=== PATIENT | male | born 1950 | race Caucasian/White ===

== ENCOUNTER 2020-10-26 20:26 | Inpatient (IN) ==
[2020-10-26] MEDS ORDERED: Piperacillin/Tazobactam 3.375 GM in 0.9 % Sodium Chloride Mini Bag 100 ML IVPB ONE (22:57)
[2020-10-26 23:33] LABS: Amorphous Sediment,Urine Few per hpf (None-Few); Bilirubin,Urine Negative (Negative); Blood,Urine Negative (Negative); Clarity,Urine Clear (Clear); Color,Urine Yellow (Yellow); Glucose,Urine (UA) Normal (Normal); Ketones,Urine Negative (Negative); Leukocyte Esterase,Urine Negative (Negative); Nitrite,Urine Negative (Negative); PH,Urine 6.5 pH Units (5.0-8.0); Protein,Urine 50 mg/dL (Neg-Trace); Specific Gravity,Urine > 1.030 (1.010-1.025); Squamous Epithelial Cell,Urine Few per hpf (None-Few); WBC,Urine 0-3 per hpf (0-3)
[2020-10-26 23:34] LABS: Amphetamine Screen,Urine Positive ng/mL (Cutoff=1000); Barbiturate Screen,Urine Negative ng/mL (Cutoff=200); Benzodiazepines Screen,Urine Negative ng/mL (Cutoff=200); Cannabinoid Screen,Urine Positive ng/mL (Cutoff = 50); Cocaine Screen,Urine Negative ng/mL (Cutoff= 300); Opiate Screen,Urine Negative ng/mL (Cutoff=300); Phencyclidine Screen,Urine Negative ng/mL (Cutoff=25)
[2020-10-26 23:46] LABS: Basophils % 0.1 %; Eosinophils # 0.1 K/mcL (0.0-0.6); Eosinophils % 0.5 %; Hematocrit 34.8 % (37.5-50.1); Hemoglobin 11.5 g/dL (12.9-16.9); Immature Granulocytes % 0.5 % (0-4); Lymphocytes # 1.1 K/mcL (0.6-4.6); Mean Corpuscular Hemoglobin 31.8 pg (28.0-33.3); Mean Corpuscular Volume 96.1 fL (83.0-100.0); Mean Platelet Volume 9.4 fL (9.4-12.4); Monocytes # 0.8 K/mcL (0.0-1.3); Monocytes % 5.5 %; Neutrophils # 12.2 K/mcL (1.6-8.9); Platelet Count 249 K/mcL (140-400); Red Blood Count 3.62 M/mcL (4.19-5.50); Red Cell Distribution Width 13.1 % (11.5-14.5); Segmented Neutrophils % 85.4 %; White Blood Count 14.3 K/mcL (4.3-11.1)
[2020-10-26 23:47] LABS: Acetaminophen < 10 mcg/mL (10-20); Ethanol < 10 mg/dL (Less than 10); Salicylate < 2.5 mg/dL (15.0-30.0)
[2020-10-26 23:48] LABS: Alanine Aminotransferase 13 Units/L (7-52); Albumin 3.1 g/dL (3.5-5.7); Albumin/Globulin Ratio 0.9 (1.1-2.2); Alkaline Phosphatase 88 Units/L (34-104); Aspartate Amino Transferase 28 Units/L (13-39); BUN/Creatinine Ratio 27 (6-26); Bilirubin,Direct 0.2 mg/dL (0.0-0.2); Bilirubin,Indirect 0.3 mg/dL (0.0-1.0); Bilirubin,Total 0.5 mg/dL (0.3-1.0); Blood Urea Nitrogen 25 mg/dL (8-23); Calcium 8.5 mg/dL (8.6-10.3); Carbon Dioxide 27 mEq/L (23-29); Chloride 99 mEq/L (98-107); Globulin 3.4 g/dL (2.4-3.5); Glucose 103 mg/dL (70-105); Lipase 7 Units/L (11-82); Osmolality,Calculated 279 (280-300); Potassium 3.7 mEq/L (3.5-5.1); Sodium 132 mEq/L (136-145); Total Protein 6.5 g/dL (6.4-8.9); eGFR For African Americans > 60 (> 60); eGFR For Non-African Americans > 60 (> 60)
[2020-10-27] MEDS ORDERED: Ondansetron 4 MG/2 ML VIAL IVP PRN (01:13)
[2020-10-27] MEDS ORDERED: Naloxone 0.4 MG/ML INJ IVP PRN (01:13)
[2020-10-27] MEDS: Vancomycin 1,250 MG/262.5 ML IV.SOLN IVPB SCH ×2 (02:38→15:36)
[2020-10-27 03:04] LABS: Basophils % 0.2 %; Eosinophils # 0.1 K/mcL (0.0-0.6); Eosinophils % 0.8 %; Hematocrit 35.5 % (37.5-50.1); Hemoglobin 11.8 g/dL (12.9-16.9); Immature Granulocytes % 0.5 % (0-4); Lymphocytes # 1.2 K/mcL (0.6-4.6); Mean Corpuscular HGB Conc 33.2 g/dL (31.6-35.5); Mean Corpuscular Hemoglobin 31.4 pg (28.0-33.3); Mean Corpuscular Volume 94.4 fL (83.0-100.0); Mean Platelet Volume 9.6 fL (9.4-12.4); Monocytes # 0.8 K/mcL (0.0-1.3); Monocytes % 6.2 %; Neutrophils # 11.1 K/mcL (1.6-8.9); Platelet Count 243 K/mcL (140-400); Red Blood Count 3.76 M/mcL (4.19-5.50); Segmented Neutrophils % 83.3 %; White Blood Count 13.3 K/mcL (4.3-11.1)
[2020-10-27] MEDS ORDERED: Saliva Stimulant 44.3ml BOTTLE PO PRN (03:08)
[2020-10-27 03:13] LABS: INR 1.1
[2020-10-27 03:17] LABS: BUN/Creatinine Ratio 27 (6-26); Blood Urea Nitrogen 25 mg/dL (8-23); Calcium 8.5 mg/dL (8.6-10.3); Carbon Dioxide 24 mEq/L (23-29); Chloride 102 mEq/L (98-107); Glucose 90 mg/dL (70-105); Osmolality,Calculated 280 (280-300); Potassium 3.7 mEq/L (3.5-5.1); Sodium 133 mEq/L (136-145); eGFR For African Americans > 60 (> 60); eGFR For Non-African Americans > 60 (> 60)
[2020-10-27] MEDS ORDERED: Dextrose Gel 15 GM/37.5 ML TUBE PO PRN ×2 (03:36)
[2020-10-27] MEDS ORDERED: D5% in Water 1,000 ML IVC PRN (03:36)
[2020-10-27] MEDS ORDERED: *HR* Dextrose 50 % in Water (Vial) 50 ML VIAL IVP PRN (03:36)
[2020-10-27] MEDS: Insulin LISPRO 300 UNITS/3 ML VIAL SUBQ SCH ×3 (07:50→17:37)
[2020-10-27] MEDS: Piperacillin/Tazobactam 3.375 GM in 0.9 % Sodium Chloride Mini Bag 100 ML IVPB SCH ×2 (08:22→15:35)
[2020-10-27] MEDS ORDERED: Isovue-370 500 ML BOTTLE IVP ONE (11:46)
[2020-10-27] MEDS: 0.9 % Sodium Chloride 1,000 ML IVC SCH (12:46)
[2020-10-28] MEDS: Insulin LISPRO 300 UNITS/3 ML VIAL SUBQ SCH ×5 (00:04→20:54)
[2020-10-28] MEDS: Piperacillin/Tazobactam 3.375 GM in 0.9 % Sodium Chloride Mini Bag 100 ML IVPB SCH ×4 (00:23→23:09)
[2020-10-28 01:43] LABS: Basophils % 0.2 %; Eosinophils # 0.1 K/mcL (0.0-0.6); Eosinophils % 0.5 %; Hematocrit 35.4 % (37.5-50.1); Hemoglobin 11.5 g/dL (12.9-16.9); Immature Granulocytes % 0.7 % (0-4); Lymphocytes # 0.9 K/mcL (0.6-4.6); Lymphocytes % 6.9 %; Mean Corpuscular HGB Conc 32.5 g/dL (31.6-35.5); Mean Corpuscular Hemoglobin 31.5 pg (28.0-33.3); Mean Platelet Volume 9.4 fL (9.4-12.4); Monocytes # 0.9 K/mcL (0.0-1.3); Monocytes % 7.6 %; Neutrophils # 10.4 K/mcL (1.6-8.9); Platelet Count 275 K/mcL (140-400); Red Blood Count 3.65 M/mcL (4.19-5.50); Red Cell Distribution Width 13.3 % (11.5-14.5); Segmented Neutrophils % 84.1 %; White Blood Count 12.4 K/mcL (4.3-11.1)
[2020-10-28 02:03] LABS: BUN/Creatinine Ratio 26 (6-26); Blood Urea Nitrogen 24 mg/dL (8-23); Calcium 8.4 mg/dL (8.6-10.3); Carbon Dioxide 25 mEq/L (23-29); Chloride 104 mEq/L (98-107); Glucose 65 mg/dL (70-105); Osmolality,Calculated 288 (280-300); Potassium 3.7 mEq/L (3.5-5.1); Sodium 138 mEq/L (136-145); eGFR For African Americans > 60 (> 60); eGFR For Non-African Americans > 60 (> 60)
[2020-10-28] MEDS: Vancomycin 1,250 MG/262.5 ML IV.SOLN IVPB SCH ×2 (03:13→15:49)
[2020-10-28] MEDS: 0.9 % Sodium Chloride 1,000 ML IVC SCH ×2 (04:17→20:31)
[2020-10-28] MEDS ORDERED: Melatonin 3 MG TABLET PO PRN (12:09)
[2020-10-28] MEDS ORDERED: *HR* LORazepam 1 MG TABLET PO PRN (12:16)
[2020-10-28] MEDS: haloperidoL 5 MG TABLET PO SCH (20:31)
[2020-10-29 02:00] LABS: Basophils % 0.3 %; Eosinophils # 0.1 K/mcL (0.0-0.6); Eosinophils % 0.8 %; Hematocrit 33.5 % (37.5-50.1); Hemoglobin 10.8 g/dL (12.9-16.9); Immature Granulocytes % 0.7 % (0-4); Lymphocytes % 9.9 %; Mean Corpuscular HGB Conc 32.2 g/dL (31.6-35.5); Mean Corpuscular Hemoglobin 31.2 pg (28.0-33.3); Mean Corpuscular Volume 96.8 fL (83.0-100.0); Mean Platelet Volume 9.5 fL (9.4-12.4); Monocytes # 1.1 K/mcL (0.0-1.3); Monocytes % 10.2 %; Platelet Count 266 K/mcL (140-400); Red Blood Count 3.46 M/mcL (4.19-5.50); Red Cell Distribution Width 13.3 % (11.5-14.5); Segmented Neutrophils % 78.1 %; White Blood Count 10.3 K/mcL (4.3-11.1)
[2020-10-29 02:22] LABS: BUN/Creatinine Ratio 20 (6-26); Blood Urea Nitrogen 17 mg/dL (8-23); Calcium 8.2 mg/dL (8.6-10.3); Carbon Dioxide 24 mEq/L (23-29); Chloride 104 mEq/L (98-107); Glucose 101 mg/dL (70-105); Magnesium 1.9 mg/dL (1.6-2.6); Osmolality,Calculated 282 (280-300); Potassium 3.8 mEq/L (3.5-5.1); Sodium 135 mEq/L (136-145); eGFR For African Americans > 60 (> 60); eGFR For Non-African Americans > 60 (> 60)
[2020-10-29] MEDS: Vancomycin 1,250 MG/262.5 ML IV.SOLN IVPB SCH ×2 (03:07→16:58)
[2020-10-29] MEDS ORDERED: Isovue-370 500 ML BOTTLE IVP ONE (07:36)
[2020-10-29] MEDS: Piperacillin/Tazobactam 3.375 GM in 0.9 % Sodium Chloride Mini Bag 100 ML IVPB SCH ×4 (07:48→22:03)
[2020-10-29] MEDS: Insulin LISPRO 300 UNITS/3 ML VIAL SUBQ SCH ×4 (07:56→22:05)
[2020-10-29 08:41] LABS: Estimated Average Glucose 120 mg/dl; Hemoglobin A1C 5.8 %
[2020-10-29] MEDS: 0.9 % Sodium Chloride 1,000 ML IVC SCH ×2 (18:00→22:06)
[2020-10-29] MEDS: haloperidoL 5 MG TABLET PO SCH (22:03)
[2020-10-30 02:42] LABS: Basophils % 0.4 %; Eosinophils # 0.2 K/mcL (0.0-0.6); Eosinophils % 1.4 %; Hematocrit 34.3 % (37.5-50.1); Hemoglobin 11.1 g/dL (12.9-16.9); Immature Granulocytes % 0.8 % (0-4); Lymphocytes # 1.2 K/mcL (0.6-4.6); Lymphocytes % 11.2 %; Mean Corpuscular HGB Conc 32.4 g/dL (31.6-35.5); Mean Corpuscular Hemoglobin 30.7 pg (28.0-33.3); Mean Corpuscular Volume 94.8 fL (83.0-100.0); Monocytes # 1.2 K/mcL (0.0-1.3); Monocytes % 11.3 %; Neutrophils # 7.9 K/mcL (1.6-8.9); Platelet Count 264 K/mcL (140-400); Red Blood Count 3.62 M/mcL (4.19-5.50); Red Cell Distribution Width 13.2 % (11.5-14.5); Segmented Neutrophils % 74.9 %; White Blood Count 10.5 K/mcL (4.3-11.1)
[2020-10-30 02:56] LABS: BUN/Creatinine Ratio 13 (6-26); Blood Urea Nitrogen 11 mg/dL (8-23); Calcium 8.1 mg/dL (8.6-10.3); Carbon Dioxide 24 mEq/L (23-29); Chloride 104 mEq/L (98-107); Glucose 103 mg/dL (70-105); Osmolality,Calculated 280 (280-300); Potassium 3.8 mEq/L (3.5-5.1); Sodium 135 mEq/L (136-145); eGFR For African Americans > 60 (> 60); eGFR For Non-African Americans > 60 (> 60)
[2020-10-30] MEDS: Vancomycin 1,250 MG/262.5 ML IV.SOLN IVPB SCH (04:00)
[2020-10-30] MEDS: Piperacillin/Tazobactam 3.375 GM in 0.9 % Sodium Chloride Mini Bag 100 ML IVPB SCH ×3 (06:15→22:35)
[2020-10-30] MEDS: Insulin LISPRO 300 UNITS/3 ML VIAL SUBQ SCH ×4 (08:01→20:40)
[2020-10-30] MEDS: 0.9 % Sodium Chloride 1,000 ML IVC SCH (20:29)
[2020-10-30] MEDS: haloperidoL 5 MG TABLET PO SCH (20:29)
[2020-10-31 06:13] LABS: Basophils # 0.1 K/mcL (0.0-0.2); Basophils % 0.5 %; Eosinophils # 0.3 K/mcL (0.0-0.6); Eosinophils % 2.5 %; Hematocrit 35.1 % (37.5-50.1); Hemoglobin 11.6 g/dL (12.9-16.9); Immature Granulocytes % 0.8 % (0-4); Lymphocytes # 1.4 K/mcL (0.6-4.6); Lymphocytes % 13.6 %; Mean Corpuscular Hemoglobin 31.8 pg (28.0-33.3); Mean Corpuscular Volume 96.2 fL (83.0-100.0); Mean Platelet Volume 9.2 fL (9.4-12.4); Monocytes # 1.2 K/mcL (0.0-1.3); Monocytes % 11.1 %; Neutrophils # 7.6 K/mcL (1.6-8.9); Platelet Count 290 K/mcL (140-400); Red Blood Count 3.65 M/mcL (4.19-5.50); Red Cell Distribution Width 13.2 % (11.5-14.5); Segmented Neutrophils % 71.5 %; White Blood Count 10.6 K/mcL (4.3-11.1)
[2020-10-31 06:41] LABS: BUN/Creatinine Ratio 13 (6-26); Blood Urea Nitrogen 11 mg/dL (8-23); Calcium 8.2 mg/dL (8.6-10.3); Carbon Dioxide 24 mEq/L (23-29); Chloride 106 mEq/L (98-107); Glucose 86 mg/dL (70-105); Osmolality,Calculated 285 (280-300); Phosphorous 3.4 mg/dL (2.7-4.5); Potassium 3.8 mEq/L (3.5-5.1); Sodium 138 mEq/L (136-145); eGFR For African Americans > 60 (> 60); eGFR For Non-African Americans > 60 (> 60)
[2020-10-31] MEDS: Piperacillin/Tazobactam 3.375 GM in 0.9 % Sodium Chloride Mini Bag 100 ML IVPB SCH ×3 (07:13→23:17)
[2020-10-31] MEDS: Insulin LISPRO 300 UNITS/3 ML VIAL SUBQ SCH ×4 (07:25→21:05)
[2020-10-31] MEDS: 0.9 % Sodium Chloride 1,000 ML IVC SCH ×2 (09:04→23:00)
[2020-10-31] MEDS: Vancomycin 1,500 MG/265 ML IV.SOLN IVPB SCH (17:00)
[2020-10-31] MEDS: haloperidoL 5 MG TABLET PO SCH (21:13)
[2020-11-01 05:40] LABS: Basophils % 0.4 %; Eosinophils # 0.3 K/mcL (0.0-0.6); Eosinophils % 2.5 %; Hematocrit 33.9 % (37.5-50.1); Hemoglobin 11.4 g/dL (12.9-16.9); Lymphocytes # 1.3 K/mcL (0.6-4.6); Lymphocytes % 11.6 %; Mean Corpuscular HGB Conc 33.6 g/dL (31.6-35.5); Mean Corpuscular Hemoglobin 31.7 pg (28.0-33.3); Mean Corpuscular Volume 94.2 fL (83.0-100.0); Mean Platelet Volume 9.2 fL (9.4-12.4); Monocytes # 1.1 K/mcL (0.0-1.3); Neutrophils # 8.4 K/mcL (1.6-8.9); Platelet Count 310 K/mcL (140-400); Red Cell Distribution Width 13.1 % (11.5-14.5); Segmented Neutrophils % 74.5 %; White Blood Count 11.3 K/mcL (4.3-11.1)
[2020-11-01] MEDS ORDERED: Isovue-370 500 ML BOTTLE PO ONE (05:55)
[2020-11-01] MEDS: Piperacillin/Tazobactam 3.375 GM in 0.9 % Sodium Chloride Mini Bag 100 ML IVPB SCH ×2 (06:32→14:46)
[2020-11-01 07:24] LABS: BUN/Creatinine Ratio 12 (6-26); Blood Urea Nitrogen 12 mg/dL (8-23); Calcium 8.3 mg/dL (8.6-10.3); Carbon Dioxide 23 mEq/L (23-29); Chloride 106 mEq/L (98-107); Glucose 82 mg/dL (70-105); Osmolality,Calculated 285 (280-300); Potassium 3.9 mEq/L (3.5-5.1); Sodium 138 mEq/L (136-145); eGFR For African Americans > 60 (> 60); eGFR For Non-African Americans > 60 (> 60)
[2020-11-01] MEDS: amLODIPine 5 MG TABLET PO SCH (08:48)
[2020-11-01] MEDS: Insulin LISPRO 300 UNITS/3 ML VIAL SUBQ SCH ×4 (08:48→20:25)
[2020-11-01] MEDS: Nicotine 21 MG PATCH.TD24 TD SCH (14:46)
[2020-11-01] MEDS: 0.9 % Sodium Chloride 1,000 ML IVC SCH (14:46)
[2020-11-01] MEDS: Vancomycin 1,500 MG/265 ML IV.SOLN IVPB SCH (17:00)
[2020-11-01] MEDS: haloperidoL 5 MG TABLET PO SCH (20:33)
[2020-11-01] MEDS ORDERED: *HR* LORazepam 2 MG/ML VIAL IVP ONE (21:51)
[2020-11-02] MEDS: Piperacillin/Tazobactam 3.375 GM in 0.9 % Sodium Chloride Mini Bag 100 ML IVPB SCH ×4 (03:23→23:53)
[2020-11-02 05:36] LABS: Basophils # 0.1 K/mcL (0.0-0.2); Basophils % 0.4 %; Eosinophils # 0.3 K/mcL (0.0-0.6); Eosinophils % 1.8 %; Hematocrit 39.6 % (37.5-50.1); Hemoglobin 13.3 g/dL (12.9-16.9); Lymphocytes # 1.7 K/mcL (0.6-4.6); Lymphocytes % 11.3 %; Mean Corpuscular HGB Conc 33.6 g/dL (31.6-35.5); Mean Corpuscular Volume 95.4 fL (83.0-100.0); Mean Platelet Volume 9.3 fL (9.4-12.4); Monocytes # 1.1 K/mcL (0.0-1.3); Monocytes % 7.4 %; Neutrophils # 11.6 K/mcL (1.6-8.9); Platelet Count 379 K/mcL (140-400); Red Blood Count 4.15 M/mcL (4.19-5.50); Red Cell Distribution Width 13.3 % (11.5-14.5); Segmented Neutrophils % 78.1 %; White Blood Count 14.8 K/mcL (4.3-11.1)
[2020-11-02 05:55] LABS: BUN/Creatinine Ratio 11 (6-26); Blood Urea Nitrogen 11 mg/dL (8-23); Calcium 8.7 mg/dL (8.6-10.3); Carbon Dioxide 23 mEq/L (23-29); Chloride 107 mEq/L (98-107); Glucose 89 mg/dL (70-105); Osmolality,Calculated 287 (280-300); Potassium 3.9 mEq/L (3.5-5.1); Sodium 139 mEq/L (136-145); eGFR For African Americans > 60 (> 60); eGFR For Non-African Americans > 60 (> 60)
[2020-11-02] MEDS: 0.9 % Sodium Chloride 1,000 ML IVC SCH ×3 (06:10→16:17)
[2020-11-02] MEDS: Insulin LISPRO 300 UNITS/3 ML VIAL SUBQ SCH ×2 (07:19→10:58)
[2020-11-02] MEDS ORDERED: Ondansetron 4 MG/2 ML VIAL IVP PRN ×3 (07:49→14:50)
[2020-11-02] MEDS ORDERED: *HR* OxyCODONE Immed Rel 5 MG TABLET PO PRN ×2 (07:49→14:50)
[2020-11-02] MEDS ORDERED: *HR* HYDROmorphone PF 0.5 MG/0.5 ML SYRINGE IVP PRN ×2 (07:49→14:50)
[2020-11-02] MEDS ORDERED: Promethazine 6.25 MG in Water for inj. (sterile) 20 ML IVPB PRN ×2 (07:49→14:50)
[2020-11-02] MEDS: Nicotine 21 MG PATCH.TD24 TD SCH (08:21)
[2020-11-02] MEDS: amLODIPine 5 MG TABLET PO SCH (08:22)
[2020-11-02] MEDS ORDERED: *HR* Vasopressin 20 UNIT/ML VIAL ONE (08:36)
[2020-11-02] MEDS ORDERED: *HR* Propofol 200 MG/20 ML VIAL IVP ONE (08:37)
[2020-11-02] MEDS ORDERED: *HR* FentaNYL (PF) 100 MCG/2 ML VIAL ONE (08:37)
[2020-11-02] MEDS ORDERED: Lidocaine HCL 4 ML Topical Solution (Laryng-O-Jet Kit Sterile Pak) TP ONE (08:38)
[2020-11-02] MEDS ORDERED: Lidocaine -MPF 2% 2 ML VIAL ONE (08:38)
[2020-11-02] MEDS ORDERED: *HR* Rocuronium Bromide 50 MG/5 ML VIAL ONE ×2 (08:38→10:11)
[2020-11-02] MEDS ORDERED: *HR* Midazolam HCl 2 MG/2 ML VIAL ONE (08:38)
[2020-11-02] MEDS ORDERED: *HR* Magnesium Sulfate 1 GM/2 ML VIAL ONE (10:13)
[2020-11-02] MEDS ORDERED: Sugammadex Sodium 200 MG/2 ML VIAL IV ONE (10:23)
[2020-11-02] MEDS ORDERED: EPHEDrine 50 MG/ML VIAL ONE (10:33)
[2020-11-02] MEDS ORDERED: *HR* HYDROMORPHONE 2 MG/ML VIAL ONE (11:12)
[2020-11-02] MEDS ORDERED: Dextrose Gel 15 GM/37.5 ML TUBE PO PRN ×2 (14:50)
[2020-11-02] MEDS ORDERED: Melatonin 3 MG TABLET PO PRN (14:50)
[2020-11-02] MEDS ORDERED: D5% in Water 1,000 ML IVC PRN (14:50)
[2020-11-02] MEDS ORDERED: *HR* Dextrose 50 % in Water (Vial) 50 ML VIAL IVP PRN (14:50)
[2020-11-02] MEDS ORDERED: Saliva Stimulant 44.3ml BOTTLE PO PRN (14:50)
[2020-11-02] MEDS ORDERED: Naloxone 0.4 MG/ML INJ IVP PRN (14:50)
[2020-11-02] MEDS ORDERED: Insulin LISPRO 300 UNITS/3 ML VIAL SUBQ SCH ×2 (16:30→21:00)
[2020-11-02] MEDS ORDERED: Vancomycin 1,500 MG/265 ML IV.SOLN IVPB SCH ×2 (18:00→20:00)
[2020-11-02] MEDS: haloperidoL 5 MG TABLET PO SCH (20:26)
[2020-11-03] MEDS: 0.9 % Sodium Chloride 1,000 ML IVC SCH ×2 (01:48→15:33)
[2020-11-03 02:41] LABS: Basophils # 0.1 K/mcL (0.0-0.2); Basophils % 0.2 %; Hematocrit 34.9 % (37.5-50.1); Immature Granulocytes % 1.1 % (0-4); Lymphocytes # 1.1 K/mcL (0.6-4.6); Lymphocytes % 4.5 %; Mean Corpuscular HGB Conc 33.2 g/dL (31.6-35.5); Mean Corpuscular Hemoglobin 32.1 pg (28.0-33.3); Mean Corpuscular Volume 96.7 fL (83.0-100.0); Mean Platelet Volume 9.3 fL (9.4-12.4); Monocytes # 1.2 K/mcL (0.0-1.3); Monocytes % 4.7 %; Neutrophils # 22.3 K/mcL (1.6-8.9); Platelet Count 377 K/mcL (140-400); Red Blood Count 3.61 M/mcL (4.19-5.50); Red Cell Distribution Width 13.5 % (11.5-14.5); Segmented Neutrophils % 89.5 %
[2020-11-03 02:46] LABS: Hemoglobin 11.6 g/dL (12.9-16.9); White Blood Count 24.9 K/mcL (4.3-11.1)
[2020-11-03 03:50] LABS: Potassium 4.8 mEq/L (3.5-5.1)
[2020-11-03] MEDS: Piperacillin/Tazobactam 3.375 GM in 0.9 % Sodium Chloride Mini Bag 100 ML IVPB SCH ×3 (06:26→23:33)
[2020-11-03] MEDS: Nicotine 21 MG PATCH.TD24 TD SCH (07:33)
[2020-11-03] MEDS: amLODIPine 5 MG TABLET PO SCH (10:38)
[2020-11-03] MEDS: Insulin LISPRO 300 UNITS/3 ML VIAL SUBQ SCH ×2 (11:53→17:02)
[2020-11-03] MEDS: haloperidoL 5 MG TABLET PO SCH (20:12)
[2020-11-03] MEDS ORDERED: Vancomycin 1,500 MG/265 ML IV.SOLN IVPB ONE (20:40)
[2020-11-04 03:28] LABS: Basophils % 0.3 %; Eosinophils # 0.1 K/mcL (0.0-0.6); Eosinophils % 0.7 %; Hematocrit 31.3 % (37.5-50.1); Hemoglobin 10.6 g/dL (12.9-16.9); Immature Granulocytes % 0.8 % (0-4); Lymphocytes # 1.2 K/mcL (0.6-4.6); Lymphocytes % 9.3 %; Mean Corpuscular HGB Conc 33.9 g/dL (31.6-35.5); Mean Corpuscular Hemoglobin 32.6 pg (28.0-33.3); Mean Corpuscular Volume 96.3 fL (83.0-100.0); Mean Platelet Volume 9.2 fL (9.4-12.4); Monocytes # 0.9 K/mcL (0.0-1.3); Monocytes % 6.8 %; Neutrophils # 10.8 K/mcL (1.6-8.9); Platelet Count 306 K/mcL (140-400); Red Blood Count 3.25 M/mcL (4.19-5.50); Red Cell Distribution Width 13.4 % (11.5-14.5); Segmented Neutrophils % 82.1 %; White Blood Count 13.1 K/mcL (4.3-11.1)
[2020-11-04 03:43] LABS: BUN/Creatinine Ratio 16 (6-26); Blood Urea Nitrogen 19 mg/dL (8-23); Calcium 7.9 mg/dL (8.6-10.3); Carbon Dioxide 22 mEq/L (23-29); Chloride 107 mEq/L (98-107); Glucose 116 mg/dL (70-105); Osmolality,Calculated 285 (280-300); Potassium 4.1 mEq/L (3.5-5.1); Sodium 136 mEq/L (136-145); eGFR For African Americans > 60 (> 60); eGFR For Non-African Americans > 60 (> 60)
[2020-11-04] MEDS: 0.9 % Sodium Chloride 1,000 ML IVC SCH ×2 (04:18→20:25)
[2020-11-04] MEDS: Piperacillin/Tazobactam 3.375 GM in 0.9 % Sodium Chloride Mini Bag 100 ML IVPB SCH ×3 (06:05→23:55)
[2020-11-04] MEDS: Insulin LISPRO 300 UNITS/3 ML VIAL SUBQ SCH ×4 (08:06→19:48)
[2020-11-04] MEDS: amLODIPine 5 MG TABLET PO SCH (08:14)
[2020-11-04] MEDS: Nicotine 21 MG PATCH.TD24 TD SCH (08:15)
[2020-11-04] MEDS: Acetaminophen IV 1,000 MG/100 ML BAG IVPB SCH ×3 (11:02→23:57)
[2020-11-04] MEDS: haloperidoL 5 MG TABLET PO SCH (20:25)
[2020-11-04] MEDS ORDERED: Vancomycin 1,250 MG/262.5 ML IV.SOLN IVPB ONE (23:00)
[2020-11-05] MEDS: Acetaminophen IV 1,000 MG/100 ML BAG IVPB SCH ×4 (05:30→23:57)
[2020-11-05 06:00] LABS: Basophils # 0.1 K/mcL (0.0-0.2); Basophils % 0.5 %; Eosinophils # 0.2 K/mcL (0.0-0.6); Eosinophils % 2.2 %; Hematocrit 32.5 % (37.5-50.1); Immature Granulocytes % 0.5 % (0-4); Lymphocytes # 0.8 K/mcL (0.6-4.6); Lymphocytes % 7.6 %; Mean Corpuscular HGB Conc 33.8 g/dL (31.6-35.5); Mean Corpuscular Hemoglobin 32.4 pg (28.0-33.3); Mean Corpuscular Volume 95.6 fL (83.0-100.0); Mean Platelet Volume 9.2 fL (9.4-12.4); Monocytes # 0.6 K/mcL (0.0-1.3); Monocytes % 5.4 %; Neutrophils # 9.3 K/mcL (1.6-8.9); Platelet Count 326 K/mcL (140-400); Red Cell Distribution Width 13.3 % (11.5-14.5); Segmented Neutrophils % 83.8 %; White Blood Count 11.1 K/mcL (4.3-11.1)
[2020-11-05 06:16] LABS: Magnesium 1.9 mg/dL (1.6-2.6); Phosphorous 2.6 mg/dL (2.7-4.5)
[2020-11-05] MEDS: Piperacillin/Tazobactam 3.375 GM in 0.9 % Sodium Chloride Mini Bag 100 ML IVPB SCH ×3 (06:16→23:30)
[2020-11-05 06:19] LABS: BUN/Creatinine Ratio 14 (6-26); Blood Urea Nitrogen 16 mg/dL (8-23); Carbon Dioxide 23 mEq/L (23-29); Chloride 106 mEq/L (98-107); Glucose 82 mg/dL (70-105); Osmolality,Calculated 282 (280-300); Potassium 3.7 mEq/L (3.5-5.1); Sodium 136 mEq/L (136-145); eGFR For African Americans > 60 (> 60); eGFR For Non-African Americans > 60 (> 60)
[2020-11-05] MEDS: Insulin LISPRO 300 UNITS/3 ML VIAL SUBQ SCH ×4 (08:48→21:25)
[2020-11-05] MEDS: Nicotine 21 MG PATCH.TD24 TD SCH (09:00)
[2020-11-05] MEDS: amLODIPine 5 MG TABLET PO SCH (09:01)
[2020-11-05] MEDS: 0.9 % Sodium Chloride 1,000 ML IVC SCH ×2 (10:09→23:30)
[2020-11-05] MEDS: haloperidoL 5 MG TABLET PO SCH (21:22)
[2020-11-06 05:24] LABS: Basophils % 0.3 %; Eosinophils # 0.3 K/mcL (0.0-0.6); Eosinophils % 2.9 %; Hematocrit 33.7 % (37.5-50.1); Hemoglobin 11.3 g/dL (12.9-16.9); Immature Granulocytes % 0.5 % (0-4); Lymphocytes # 0.7 K/mcL (0.6-4.6); Lymphocytes % 7.9 %; Mean Corpuscular HGB Conc 33.5 g/dL (31.6-35.5); Mean Corpuscular Hemoglobin 31.6 pg (28.0-33.3); Mean Corpuscular Volume 94.1 fL (83.0-100.0); Mean Platelet Volume 9.2 fL (9.4-12.4); Monocytes # 0.3 K/mcL (0.0-1.3); Monocytes % 3.7 %; Neutrophils # 7.8 K/mcL (1.6-8.9); Platelet Count 382 K/mcL (140-400); Red Blood Count 3.58 M/mcL (4.19-5.50); Red Cell Distribution Width 12.9 % (11.5-14.5); Segmented Neutrophils % 84.7 %; White Blood Count 9.2 K/mcL (4.3-11.1)
[2020-11-06 05:33] LABS: BUN/Creatinine Ratio 12 (6-26); Blood Urea Nitrogen 13 mg/dL (8-23); Calcium 8.1 mg/dL (8.6-10.3); Carbon Dioxide 22 mEq/L (23-29); Chloride 104 mEq/L (98-107); Glucose 89 mg/dL (70-105); Osmolality,Calculated 280 (280-300); Potassium 3.6 mEq/L (3.5-5.1); Sodium 135 mEq/L (136-145); eGFR For African Americans > 60 (> 60); eGFR For Non-African Americans > 60 (> 60)
[2020-11-06] MEDS: Piperacillin/Tazobactam 3.375 GM in 0.9 % Sodium Chloride Mini Bag 100 ML IVPB SCH (05:56)
[2020-11-06] MEDS: Acetaminophen IV 1,000 MG/100 ML BAG IVPB SCH (05:57)
[2020-11-06] MEDS: amLODIPine 5 MG TABLET PO SCH (09:04)
[2020-11-06] MEDS: Nicotine 21 MG PATCH.TD24 TD SCH (09:04)
[2020-11-06] MEDS: Insulin LISPRO 300 UNITS/3 ML VIAL SUBQ SCH ×3 (10:37→17:48)
[2020-11-06] MEDS: haloperidoL 5 MG TABLET PO SCH (19:21)
[2020-11-06] MEDS: metroNIDAZOLE 500 MG TABLET PO SCH (19:21)
[2020-11-06] MEDS: Sulfamethoxazole/Trimeth DS 1 EACH TABLET PO SCH (19:21)
[2020-11-07 02:35] LABS: Basophils % 0.3 %; Eosinophils # 0.4 K/mcL (0.0-0.6); Eosinophils % 3.5 %; Hematocrit 31.7 % (37.5-50.1); Hemoglobin 10.4 g/dL (12.9-16.9); Immature Granulocytes % 0.5 % (0-4); Lymphocytes # 1.2 K/mcL (0.6-4.6); Lymphocytes % 11.8 %; Mean Corpuscular HGB Conc 32.8 g/dL (31.6-35.5); Mean Corpuscular Hemoglobin 30.7 pg (28.0-33.3); Mean Corpuscular Volume 93.5 fL (83.0-100.0); Monocytes # 0.8 K/mcL (0.0-1.3); Monocytes % 7.9 %; Neutrophils # 7.8 K/mcL (1.6-8.9); Platelet Count 365 K/mcL (140-400); Red Blood Count 3.39 M/mcL (4.19-5.50); Red Cell Distribution Width 13.1 % (11.5-14.5); White Blood Count 10.3 K/mcL (4.3-11.1)
[2020-11-07 02:54] LABS: BUN/Creatinine Ratio 15 (6-26); Blood Urea Nitrogen 14 mg/dL (8-23); Carbon Dioxide 22 mEq/L (23-29); Chloride 105 mEq/L (98-107); Glucose 96 mg/dL (70-105); Osmolality,Calculated 280 (280-300); Potassium 3.6 mEq/L (3.5-5.1); Sodium 135 mEq/L (136-145); eGFR For African Americans > 60 (> 60); eGFR For Non-African Americans > 60 (> 60)
[2020-11-07] MEDS: Insulin LISPRO 300 UNITS/3 ML VIAL SUBQ SCH ×4 (04:32→17:13)
[2020-11-07] MEDS: Nicotine 21 MG PATCH.TD24 TD SCH (08:08)
[2020-11-07] MEDS: metroNIDAZOLE 500 MG TABLET PO SCH ×2 (08:08→21:55)
[2020-11-07] MEDS: Sulfamethoxazole/Trimeth DS 1 EACH TABLET PO SCH ×2 (08:09→21:55)
[2020-11-07] MEDS: amLODIPine 5 MG TABLET PO SCH (08:09)
[2020-11-07] MEDS: *HR* LORazepam 1 MG TABLET PO PRN (12:23)
[2020-11-07] MEDS: haloperidoL 5 MG TABLET PO SCH (21:55)
[2020-11-08] MEDS: Insulin LISPRO 300 UNITS/3 ML VIAL SUBQ SCH ×5 (03:25→23:43)
[2020-11-08] MEDS: Nicotine 21 MG PATCH.TD24 TD SCH (07:37)
[2020-11-08] MEDS: amLODIPine 5 MG TABLET PO SCH (07:38)
[2020-11-08] MEDS: Sulfamethoxazole/Trimeth DS 1 EACH TABLET PO SCH ×2 (07:38→22:01)
[2020-11-08] MEDS: metroNIDAZOLE 500 MG TABLET PO SCH ×2 (07:43→22:00)
[2020-11-08] MEDS: *HR* LORazepam 1 MG TABLET PO PRN (14:21)
[2020-11-08] MEDS: haloperidoL 5 MG TABLET PO SCH (22:00)
[2020-11-09] MEDS: Insulin LISPRO 300 UNITS/3 ML VIAL SUBQ SCH ×4 (07:53→20:42)
[2020-11-09] MEDS: Sulfamethoxazole/Trimeth DS 1 EACH TABLET PO SCH ×2 (08:40→20:40)
[2020-11-09] MEDS: Nicotine 21 MG PATCH.TD24 TD SCH (08:40)
[2020-11-09] MEDS: metroNIDAZOLE 500 MG TABLET PO SCH ×2 (08:40→20:40)
[2020-11-09] MEDS: amLODIPine 5 MG TABLET PO SCH (08:40)
[2020-11-09] MEDS: *HR* LORazepam 1 MG TABLET PO PRN ×2 (13:49→22:20)
[2020-11-09] MEDS: haloperidoL 5 MG TABLET PO SCH (20:40)
[2020-11-10] MEDS: Insulin LISPRO 300 UNITS/3 ML VIAL SUBQ SCH ×4 (10:14→20:44)
[2020-11-10] MEDS: amLODIPine 5 MG TABLET PO SCH (10:20)
[2020-11-10] MEDS: Sulfamethoxazole/Trimeth DS 1 EACH TABLET PO SCH ×2 (10:20→20:50)
[2020-11-10] MEDS: metroNIDAZOLE 500 MG TABLET PO SCH ×2 (10:21→20:50)
[2020-11-10] MEDS: Nicotine 21 MG PATCH.TD24 TD SCH (10:21)
[2020-11-10] MEDS: haloperidoL 5 MG TABLET PO SCH (20:50)
[2020-11-11] MEDS: *HR* LORazepam 1 MG TABLET PO PRN ×4 (01:06→22:38)
[2020-11-11] MEDS: Insulin LISPRO 300 UNITS/3 ML VIAL SUBQ SCH ×4 (09:31→22:56)
[2020-11-11] MEDS: amLODIPine 5 MG TABLET PO SCH (09:51)
[2020-11-11] MEDS: metroNIDAZOLE 500 MG TABLET PO SCH ×2 (09:51→20:57)
[2020-11-11] MEDS: Sulfamethoxazole/Trimeth DS 1 EACH TABLET PO SCH ×2 (09:51→20:57)
[2020-11-11] MEDS: Nicotine 21 MG PATCH.TD24 TD SCH (09:52)
[2020-11-11] MEDS: haloperidoL 5 MG TABLET PO SCH (20:57)
[2020-11-12] MEDS: Sulfamethoxazole/Trimeth DS 1 EACH TABLET PO SCH ×2 (08:33→21:07)
[2020-11-12] MEDS: metroNIDAZOLE 500 MG TABLET PO SCH ×2 (08:33→21:07)
[2020-11-12] MEDS: amLODIPine 5 MG TABLET PO SCH (08:33)
[2020-11-12] MEDS: Nicotine 21 MG PATCH.TD24 TD SCH (08:34)
[2020-11-12] MEDS: Insulin LISPRO 300 UNITS/3 ML VIAL SUBQ SCH ×4 (08:36→21:33)
[2020-11-12] MEDS: haloperidoL 5 MG TABLET PO SCH (21:07)
[2020-11-12] MEDS: *HR* LORazepam 1 MG TABLET PO PRN (22:13)
[2020-11-13] MEDS: Sulfamethoxazole/Trimeth DS 1 EACH TABLET PO SCH ×2 (07:13→20:34)
[2020-11-13] MEDS: Nicotine 21 MG PATCH.TD24 TD SCH (07:13)
[2020-11-13] MEDS: amLODIPine 5 MG TABLET PO SCH (07:14)
[2020-11-13] MEDS: metroNIDAZOLE 500 MG TABLET PO SCH ×2 (07:14→20:34)
[2020-11-13] MEDS: Insulin LISPRO 300 UNITS/3 ML VIAL SUBQ SCH ×4 (08:03→20:26)
[2020-11-13] MEDS: *HR* LORazepam 1 MG TABLET PO PRN (14:07)
[2020-11-13] MEDS: haloperidoL 5 MG TABLET PO SCH (20:34)
[2020-11-14] MEDS: amLODIPine 5 MG TABLET PO SCH (07:55)
[2020-11-14] MEDS: metroNIDAZOLE 500 MG TABLET PO SCH ×2 (07:55→21:17)
[2020-11-14] MEDS: Nicotine 21 MG PATCH.TD24 TD SCH (07:55)
[2020-11-14] MEDS: Insulin LISPRO 300 UNITS/3 ML VIAL SUBQ SCH ×4 (07:55→21:21)
[2020-11-14] MEDS: Sulfamethoxazole/Trimeth DS 1 EACH TABLET PO SCH ×2 (07:55→21:17)
[2020-11-14] MEDS: *HR* LORazepam 1 MG TABLET PO PRN (08:33)
[2020-11-14] MEDS: haloperidoL 5 MG TABLET PO SCH (21:17)
[2020-11-15] MEDS: Insulin LISPRO 300 UNITS/3 ML VIAL SUBQ SCH ×2 (08:26→12:11)
[2020-11-15] MEDS: metroNIDAZOLE 500 MG TABLET PO SCH ×2 (09:57→22:59)
[2020-11-15] MEDS: Sulfamethoxazole/Trimeth DS 1 EACH TABLET PO SCH ×2 (09:57→22:59)
[2020-11-15] MEDS: Nicotine 21 MG PATCH.TD24 TD SCH (09:58)
[2020-11-15] MEDS: amLODIPine 5 MG TABLET PO SCH (10:04)
[2020-11-15] MEDS: *HR* LORazepam 1 MG TABLET PO PRN (13:29)
[2020-11-15] MEDS: haloperidoL 5 MG TABLET PO SCH (23:00)
[2020-11-16] MEDS: Nicotine 21 MG PATCH.TD24 TD SCH (08:25)
[2020-11-16] MEDS: metroNIDAZOLE 500 MG TABLET PO SCH ×2 (08:25→18:31)
[2020-11-16] MEDS: Sulfamethoxazole/Trimeth DS 1 EACH TABLET PO SCH ×2 (08:25→18:31)
[2020-11-16] MEDS: amLODIPine 5 MG TABLET PO SCH (08:25)
[2020-11-16 18:01] LABS: Adenovirus Not Detected (Not Detect); Bordetella Pertussis Not Detected (Not Detect); Chlamydophila pneumoniae Not Detected (Not Detect); Coronavirus 229E Not Detected (Not Detect); Coronavirus HKU1 Not Detected (Not Detect); Coronavirus NL63 Not Detected (Not Detect); Coronavirus OC43 Not Detected (Not Detect); Human Metapneumovirus Not Detected (Not Detect); Human Rhinovirus/Enterovirus Not Detected (Not Detect); Influenza A Subtype 2009 H1 Not Detected (Not Detect); Influenza B Not Detected (Not Detect); Mycoplasma pneumoniae Not Detected (Not Detect); Parainfluenza Virus 1 Not Detected (Not Detect); Parainfluenza Virus 2 Not Detected (Not Detect); Parainfluenza Virus 3 Not Detected (Not Detect); Parainfluenza Virus 4 Not Detected (Not Detect); Respiratory Syncytial Virus Not Detected (Not Detect); SARS-CoV-2 Not Detected (Not Detect)
[2020-11-16 20:13] VITALS: BP 106/74; PULSE 62; TEMP 98; O2SAT 95
[2020-11-16] MEDS: haloperidoL 5 MG TABLET PO SCH (20:32)
== END 2020-11-17 03:30 | DRG 329 ==
LOC: EMEROOARM 20:26 → 3ANU 20:26 → SUATTDRO 10-27 00:49 → OBSVTOIN 10-27 00:49 → 3ANU 10-27 01:27
PROVIDERS: ADMIT Family Medicine; ATTEND Family Medicine